=== PATIENT | female | born 1955 | race Caucasian/White ===

== ENCOUNTER 2019-02-04 08:35 | Day surgery (SDC) | payer OTHER, SELFPAY ==
[2019-01-23 07:58] VITALS: BMI 35.4
[2019-02-04] VITALS (13 sets, daily range): BP systolic 110–155; BP diastolic 43–85; PULSE 64–80; RESP 10–16; TEMP 36.2–36.7; O2SAT 91–96; BMI 35.4
[2019-02-04] MEDS: LACTATED RINGERS 1,000 ML 42 ML IV (09:10)
--- NOTE | 2019-02-04 10:28 | PM.PREOP ---
Pre-operative Note Interval Note History & Physical reviewed/Exam performed by Physician: Yes Changes to H&P: Yes H&P completed within 30 days and has changed as indicated here:: We reviewed the procedures once again and described in detail her options, risks, potential complications, and expected outcomes. Consent was drawn up and signed, she had no further questions. Understands non-weightbearing 6-8 weeks potentially initially.
[2019-02-04] MEDS: CEFAZOLIN 2 GM/100 ML FROZ.PIGGY IV (10:43)
--- NOTE | 2019-02-04 11:15 | SUR.OPER ---
Supine on padded OR bed, head on pillow, arms secured on padded arm boards at <90 degrees abduction, legs uncrossed, safety belt at waist, tape over blanket over lower right leg, left leg draped free with gel bump under hip. .
--- NOTE | 2019-02-04 11:32 | SUR.OPER ---
Removed hardware has been placed in formalin and archived in SPD
[2019-02-04] MEDS: BUPIVACAINE 0.5% (PF) VIAL 30 ML INJ (11:42)
[2019-02-04] MEDS: DEXAMETHASONE 10 MG/ML VIAL IV (13:31)
[2019-02-04] MEDS: HYDROCODONE/ACET 5/325 TABLET 1 TAB PO (14:11)
--- NOTE | 2019-02-04 14:15 | SUR.PHASEI ---
oxygen decreased to 2l/cannnula,
[2019-02-04] MEDS: fentaNYL 100 MCG/2 ML INJ 50 MCG IV (14:23)
--- NOTE | 2019-02-04 15:24 | SUR.PHASEII ---
[id number] Desires to go home. VSS, IV dc'd; assisted patient with dressing and took her into the restroom in the wheelchair. Transferred to toilet w/o weight bearing. WC and walker present to aid patient. Patient had small incontinence, pad given.States that she has her pain medicine at home. 1515 Reviewed instructions. Fresh ice pack and glasses case to patient upon discharge. No nausea, skin warm and dry, no c/o pain, has difficulty getting up without weight bearing. States that she has the scooter and crutches at home.
--- NOTE | 2019-02-04 17:59 | PM.OP.1 ---
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 Left foot broken hardware removal midfoot 2. Left first metatarsocuneiform joint revision fusion with cortical graft placement 3. Left medial hallux nerve decompression Same procedure as scheduled: Yes Indications: Ongoing pain to the left foot along an area of midfoot appearing to have a nonunion with prior fusion attempt. She was found to have a broken plate in the area and she also was experiencing numbness, tingling in that area. Conservative measures to alleviate these pains were attempted and she wished to have surgical intervention at this time. We discussed in detail the options for care for these multiple concerns once again today, and based on the risks, potential complications, expected outcomes, consent was signed for the procedures listed. Of note, this is also witnessed by her son present during this discussion today. No contraindications to the procedures at this time. Surgeon: Clementina French Click Yes if Unassisted: Yes Anesthesia Type: General Operative Notes Findings: Broken plate at proximal aspect. All screws removed and none of them broken. The metatarsocuneiform joint and surrounding areas showed thickened apparent scar tissue, but no cortical bridging of the joint. Puckering of an area medially along the subcutaneous tissues appeared to be bound down into the segment of the underlying scar tissue (just proximal of center on incision). Closure Type: primary Specimen(s): none sent Prosthetic devices, grafts, tissues, transplants, or devices: [place] Lapidus plate, large. Gorilla plating screws 4.2 x 5 [place] 8mm Lap[place]us wedge bone graft [place] V92 1cc Estimated Blood Loss (mL): 30 Blood products transfused: none Tourniquet time (min): 120 Procedure in detail: The patient was brought to the operating room and placed on the operating table in the supine position. The tourniquet was placed about the left thigh. Well padded, appropriately aligned. After induction of general anesthesia the left foot and ankle were prepped and draped in the usual aseptic manner. The tourniquet was inflated. Incision was made over the 1st metatarsal cuneiform joint extending toward the 1st metatarsophalangeal joint. The incision was following the prior incision made. It was deepened through subcutaneous tissues being careful to identify and retract all vital neurovascular structures. All bleeders were cauterized and ligated as necessary. There was significant thick tissue covering the plate and screws, but it was able to be gently reflected although quite thick. The headless screw dorsal laterally was found with a little bone coverage over the head and a currette was used to gently remove that for access to the screw. The screws were then removed and then the plate. Each screw was observed and none appeared to be broken. The broken plate was proximal and each of the screws adn plate were passed from the table and placed in a formalin jar as per medical staff direction based on desire of patient to save them. During the process of removal the patient had requested and a picture of the operative site was taken. Once the hardware was removed, the area was irrigated with copious amounts of normal saline. The first metatarsocuneiform joint was observed to have no bony bridging except what appeared to be some on the most lateral aspect. There was much scar tissue over the area and the graft appeared to have been only partially structurally present, mixed with the scar tissue. Ron[place] used to remove the bone that was not viable and the scar tissue present. Osteotome, curette, and bone saw also used for getting to good bleeding bone but also resection of the couple mm of small segment at lateral fused area. I was able to gain a little more mobility once I released and resected the lateral area. Care was taken to not introduce sharp instrumentation into the second metatarsal base. Irrigation once again, and fenestrated drilling was done on either side of the former joint. After testers used for the bone graft, it was decided upon the 8mm wedge. This was wrapped with the V92 and remaining V92 placed in larger void from the headless screw that was removed. The wedge sat tightly in the former joint space and allowed for some reduction of the first intermetatarsal angle. A plate and screws were trialed and then placed across the graft and former joint space, in the standard AO technique. There was not enough room in the bone with the previous voids present to allow for a lag screw across, but the tightness of the construct of the graft and the plate and screws present were appropriate to proceed without the lag screw. During this process the positioning and hardware were checked on C-arm on multiple angles. Alignment good and no hardware impingment. Area was irrigated with normal saline. On one view I noticed a small clear area medial second metatarsal base. I placed a freer elevator in it and under fluoroscopy it was about 1-2 mm and then stopped. It's possible it was a stress reaction or soft area of bone where the dissection and resection of the lateral area that had healed. But on multiple views it was not showing any more than that, it is not showing fracture, and does not appear to be unstable. The tourniquet was deflated and a prompt hyperemic response was seen in the foot. The medial first ray scar tissue was very thick as previously mentioned, especially in the area that was puckered subcutaneously and into the underlying deeper tissues near the plate. The neurovascular bundle coursing medial plantar was gently teased away from the scar tissue and when the digital nerve was traced, Dexamethasone Phosphate was dripped over it along it's exposed course. Deep and subcutaneous closure was closed performed with Vicryl and nylon to the skin. The foot was dressed with a lightly compressive sterile dressing. She was then placed in a postoperative shoe and transferred to PACU with vital signs stable. Of note, the removed hardware and photos taken were saved by the hospital. Complications: none Condition: stable Disposition: PACU Plan for aftercare: Following a period of postoperative monitoring the patient be discharged home on written and oral postoperative instructions including keeping the dressing dry and intact, no weight bearing to the foot, icing and elevating the foot when seated at home. DVT prevention techniques have been reviewed. She will start her lovenox injections tomorrow on a short course, and I reviewed her pain management with her and her son. She has a postoperative visit for a dressing change and suture check in about 9 days, and then if the suture is not ready to be removed at that time, we will have her seen the following week for removal. She will get her first x-ray at about s/p 3-4 weeks, and should not be weight bearing until the 4-6 week essence. As she comes off the lovenox, she may begin additional anti-coagulation methods such as aspirin daily if tolerated while undergoing the limited weightbearing.
== END 2019-02-04 15:18 | disposition home or self-care (01) ==
PROVIDERS: Admitting Provider Anesthesiology; PCP Family Medicine Adult Medicine; Visit Provider Podiatrist
PROC: (CPT 28740; principal; 2019-02-04 10:15)
DX: M96.0 Pseudarthrosis after fusion or arthrodesis (principal); T84.213A Breakdown (mechanical) of internal fixation device of bones of foot and toes, initial encounter; T84.84XA Pain due to internal orthopedic prosthetic devices, implants and grafts, initial encounter; G58.8 Other specified mononeuropathies; I10 Essential (primary) hypertension; F17.210 Nicotine dependence, cigarettes, uncomplicated
CPT/HCPCS: 28740; 64704; 20680; J0360; J0690; J1100; J2250; J2405; J2704; J3010